=== PATIENT | male | born 1955 | race Caucasian/White ===

== ENCOUNTER 2016-11-28 07:24 | Inpatient (IN) | payer MEDICAID ==
[~2016-11-28] VITALS: Ht 180.3 cm; Wt 99.8 kg
[2016-11-28 08:17] LABS: BASOPHILS 0.3 % (0.0-2.0); EOSINOPHILS 3.5 % (0-7); HEMATOCRIT 46.7 % (42.0-54.0); HEMOGLOBIN 16.4 g/dL (13.5-17.5); IMMATURE GRANULOCYTES 0.3 % (0-5); LYMPHOCYTES 16.5 % (15-50); MCH 36.1 pg (26.0-34.0); MCHC 35.1 g/dL (31.0-37.0); MCV 102.9 fL (80.0-100.0); MEAN PLATELET VOLUME 10.9 fL (7.4-10.4); MONOCYTES 6.6 % (2-11); NEUTROPHILS 72.8 % (40-80); PLATELET COUNT 185 10x3/uL (130-400); RBC 4.54 10x6/uL (4.20-6.10); RDW 13.1 % (11.5-14.5); WBC 11.3 10x3/uL (4.8-10.8)
[2016-11-28 08:33] LABS: ALBUMIN 4.2 g/dL (3.4-5.0); ANION GAP 15.1 mmol/L (8-16); BILIRUBIN - TOTAL 0.5 mg/dL (0.2-1.3); CALCIUM 9.2 mg/dL (8.5-10.1); CARBON DIOXIDE 28.8 mmol/L (21.0-32.0); CREATININE - SERUM 1.4 mg/dL (0.6-1.3); POTASSIUM - SERUM 3.9 mmol/L (3.5-5.1); PROTEIN - SERUM 7.8 g/dL (6.4-8.2)
[2016-11-28 08:38] LABS: MAGNESIUM - SERUM 1.6 mg/dL (1.8-2.4)
[2016-11-28 10:00] LABS: CREATINE KINASE 115 UL (21-232); TROPONIN-I < 0.017 ng/mL (0.000-0.060)
[2016-11-28 10:21] LABS: APPEARANCE HAZY (CLEAR); BILIRUBIN NEGATIVE (NEGATIVE); COLOR YELLOW (YELLOW); GLUCOSE NEGATIVE (NEGATIVE); KETONE NEGATIVE (NEGATIVE); LEUKOCYTE ESTERASE TRACE (NEGATIVE); NITRITE NEGATIVE (NEGATIVE); PROTEIN 1+ mg/dL (NEGATIVE); SPECIFIC GRAVITY 1.015 (1.005-1.020); UROBILINOGEN NORMAL (NORMAL)
[2016-11-28 10:22] LABS: BACTERIA MODERATE /hpf (NONE SEEN); EPITHELIAL CELLS 0-5 /hpf (0-5); MUCUS >1+ /lpf (NONE SEEN); RED CELLS - URINE 0-5 /hpf (0-5); WHITE CELLS - URINE 0-5 /hpf (0-5)
[2016-11-28 10:23] LABS: GRANULAR CAST OCC /lpf (NONE SEEN); HYALINE CAST OCC /lpf (NONE SEEN)
--- NOTE | 2016-11-28 10:42 | NUR ---
PT ARRIVED TO ROOM WITH HOSPITAL STAFF. WILL BEGIN ADMISSION ASSESSMENT AND WORK-UP AT THIS TIME.
[2016-11-28] MEDS ORDERED: NORVASC5 MG PO (10:56)
[2016-11-28] MEDS ORDERED: TENORMIN25 MG PO (10:56)
[2016-11-28 10:57] VITALS: BP 110/53; BMI 30.7
[2016-11-28 11:57] VITALS: BP 140/73
--- NOTE | 2016-11-28 12:14 | NUR ---
INITIATED PTS PUPIL PERSONNEL WORKER PUMP. MORPHINE 1MG Q10MIN WITH 4HR 10MG LOCKOUT IN PLACE. INFUSING VIA L.FA PIV ALONG WITH D5 LR @100ML/HR INFUSING ORDERED. PIV HAS DRSG CDI AND SWAB CAPS IN USE. PT NPO AND C/O DRY MOUTH PROVIDED HIM WITH ORAL MOUTH SWABS. PT DENIES WANTING ANY SCDS ON AND STATES HE WILL BE UP AMBULATORY OFTEN. CL IN REACH, BED IN LOWEST, AT BEDSIDE. NO FURTHER NEEDS AT THIS TIME. WILL CPOC.
[2016-11-28 15:10] VITALS: BP 146/90
--- NOTE | 2016-11-28 19:15 | NUR ---
RESUMED CARE OF PT, IV-LFA-D5 LR-100, STAFF CONSULTANT PUMP, VISITING WITH , DENIES ANY NEEDS, CALL LIGHT IN REACH, BED IS LOW, SRX2, WILL CONTINUE TO MONITOR
[2016-11-28 20:00] VITALS: BP 121/70
--- NOTE | 2016-11-28 23:49 | NUR ---
WOOD POLE TREATER AT BEDSIDE TO OBTAIN VITALS, CALL LIGHT IN REACH. WILL CONTINUE TO MONITOR.
[2016-11-29] VITALS: BP 133/58
--- NOTE | 2016-11-29 02:21 | NUR ---
SLEEPING, BED IS LOW, SRX2, CALL LIGHT IN REACH
[2016-11-29 04:00] VITALS: BP 133/62
--- NOTE | 2016-11-29 07:23 | NUR ---
AM ROUNDING- PT SITTING UP IN BED WITH HOB ELEVATED 30 DEGREES. PT IS ALERT AND ORIENTED. ON ROOM AIR. NO MONITOR. PT IS NPO D/T PANCREATITIS. IV SEEN TO LEFT FOREARM WITH D5, LR RUNNING AT 100CC. PACKAGE CRIMPER PUMP WITH MORPHINE AT 1MG [id number] WITH A 10MG Q4H LOCKOUT, AND PT CAN HAVE BOLUS Q2H AT 2MG. PT IS UP AD HELEN. PT DENIES ANY NEED AT CURRENT TIME. WILL CONTINUE TO MONITOR.
[2016-11-29 08:00] VITALS: BP 158/78
--- NOTE | 2016-11-29 08:11 | NUR ---
PT IN WHEELCHAIR WITH IN HALLWAY WITH IV PUMP WANTING TO GO OUTSIDE AND SMOKE. INFORMED PT THAT I DO NOT THINK IT IS A GOOD IDEA TO GO OUTSIDE TO SMOKE SINCE PT IS ON MORPHINE OPERATIONS AND MAINTENANCE TECHNICAN. PT STATED HE IS GOING OUTSIDE TO SMOKE AND IT "HAS NOT BEEN A PROBLEM THE PAST THREE SHIFTS". DISCONNECTED PT FROM IV PUMP WITH OPERATIONS AND MAINTENANCE TECHNICAN. PT OUT TO SMOKE VIA WHEELCHAIR WITH . WILL CONTINUE TO MONITOR.
[2016-11-29 09:34] LABS: BASOPHILS 0.3 % (0.0-2.0); HEMOGLOBIN 14.1 g/dL (13.5-17.5); IMMATURE GRANULOCYTES 0.3 % (0-5); LYMPHOCYTES 13.4 % (15-50); MCH 35.5 pg (26.0-34.0); MCHC 34.4 g/dL (31.0-37.0); MCV 103.3 fL (80.0-100.0); MEAN PLATELET VOLUME 10.6 fL (7.4-10.4); RBC 3.97 10x6/uL (4.20-6.10); RDW 13.2 % (11.5-14.5); WBC 8.8 10x3/uL (4.8-10.8)
--- NOTE | 2016-11-29 09:58 | NUR ---
ON MONITOR SHOWING SR, HR 88.
[2016-11-29 10:03] LABS: ALBUMIN 3.4 g/dL (3.4-5.0); ANION GAP 12.7 mmol/L (8-16); BILIRUBIN - TOTAL 1.1 mg/dL (0.2-1.3); CALCIUM 8.9 mg/dL (8.5-10.1); CREATININE - SERUM 1.5 mg/dL (0.6-1.3); POTASSIUM - SERUM 3.7 mmol/L (3.5-5.1); PROTEIN - SERUM 7.2 g/dL (6.4-8.2)
[2016-11-29 10:05] LABS: CHOL - HDL RATIO 5.1 ratio (2.3-4.9); LDL-HDL RATIO 3.2 ratio (1.5-3.5)
[2016-11-29 10:09] LABS: PLATELET COUNT 107 10x3/uL (130-400)
--- NOTE | 2016-11-29 11:19 | NUR ---
1110- PT OUT OF ROOM VIA WHEELCHAIR TO SMOKE. INFORMED PT THAT I DO NOT ADVISE THAT BECAUSE BEING ON A FERRYBOAT CAPTAIN PUMP WITH MORPHINE. PT STATED HE IS GOING OUT TO SMOKE. I DISCONNECTED PT FROM IV AND FERRYBOAT CAPTAIN PUMP. IS TAKING PT OUT TO SMOKE VIA WHEELCHAIR. WILL CONTINUE TO MONITOR.
[2016-11-29 12:00] VITALS: BP 143/65
[2016-11-29 12:14] VITALS: Ht 180.3 cm; Wt 99.8 kg
--- NOTE | 2016-11-29 12:51 | NUR ---
Patient Name: MICHELLE ECHOLS Admission Status: ER Accout number: [id number] Admission Date: 11-28-2016 : 1955 Admission Diagnosis: Attending: ELISSA Current LOS: 1 Anticipated DC Date: Planned Disposition: Home Primary [place]: [place] PR[employer]IONS C[place] Discharge Planning Comments: * Is the patient Alert and Oriented? Yes 0 * How many steps to enter\exit or inside your home? 3 0 * PCP DR. KUMARI 0 * Pharmacy [facility] 0 * Preadmission Environment Home with Family 0 * ADLs Independent 0 * Equipment None 0 * Other Equipment NO MEDICAL EQUIPMENT PROVIDER PREFERENCE 0 * List name and contact numbers for known caregivers / representatives who currently or will assist patient after discharge: ANTHONY ECHOLS, SPOUSE, 0 * Community resources currently utilized None 0 * Please name any agencies selected above. NONE 0 * Additional services required to return to the preadmission environment? No 0 * Can the patient safely return to the preadmission environment? Yes 0 CM MET WITH PT IN ROOM TO DISCUSS DISCHARGE PLANNING AND NEEDS. PT REPORTS LIVING AT HOME INDEPENDENTLY WITH SOUSE. PT HAS NO MEDICAL EQUIPMENT AND NO OUTSIDE SERVICES ASSISTING IN THE HOME. CM DISCUSSED AVAILABILITY OF HOME HEALTH, REHAB SERVICES AND MEDICAL EQUIPMENT. PT DENIES DISCHARGE NEEDS, REPORTS HIS SPOUSE WILL PICK HIM UP FOR DISCHARGE HOME. PT PLANS TO DISCHARGE HOME WITH SPOUSE, DENIES DISCHARGE NEEDS. CM TO FOLLOW AND ASSIST NEEDED. Box Inspector: Adán Light
--- NOTE | 2016-11-29 13:48 | NUR ---
1030- SCDS PLACED ON PT AND EXPLAINED TO PT WHAT SCDS ARE USED FOR.
--- NOTE | 2016-11-29 14:05 | NUR ---
PT OFF UNIT AGAIN VIA WHEELCHAIR TO SMOKE. DISCONNECTED PT FROM IV AND QUALITY CONTROL DIRECTOR PUMP. IS TAKING PT DOWN VIA WHEELCHAIR. INFORMED PT THAT I DO NOT THINK IT IS A GOOD IDEA TO GO OFF UNIT TO SMOKE. PT OFF UNIT VIA WHEELCHAIR ACCOMPANIED BY . WILL CONTINUE TO MONITOR.
--- NOTE | 2016-11-29 14:39 | NUR ---
D/C'D PTS PACKAGE REINSPECTOR PUMP WITH MORPHINE ORDERED. PT STATED HE IS NOT HAPPY ABOUT PACKAGE REINSPECTOR BEING D/C. I INFORMED PT THAT DOCTOR IS STILL PUTTING ORDERS IN. PT STATED HE WOULD CHECK HIMSELF OUT OF HOSPITAL AND GO TO [facility] IF HE DOES NOT GET PAIN MEDICAION. NEW ORDERS ARE BEING RECEIVED, WILL INFORM PT AND CONTINUE TO MONITOR.
[2016-11-29 16:00] VITALS: BP 149/83
--- NOTE | 2016-11-29 17:57 | NUR ---
PT SITTING UP IN BED WATCHING TV ASKING WHEN HE CAN HAVE HIS NEXT DOSE OF PAIN MEDICATION. INFORMED PT THAT I WOULD CHECK AND GET BACK TO HIM. WILL CONTINUE TO MONITOR.
--- NOTE | 2016-11-29 19:00 | NUR ---
RESTING QUIETLY NAD NOTED
--- NOTE | 2016-11-29 19:10 | NUR ---
RESUMED CARE, PT ON ROOM AIR, IV-LFA-MVI @ 125, PT IS ALERT&ORINTATED, UP AB HELEN, AT BEDSIDE, DENIES ANY NEEDS, CALL LIGHT IN REACH, BED IS LOW, SRX2
[2016-11-29 22:18] VITALS: BP 144/69
--- NOTE | 2016-11-30 03:45 | NUR ---
PT SLEEPING, GAVE MINNIE BACK, AT BED SIDE, WILL CONTINUE TO MONITOR
[2016-11-30 05:15] LABS: BASOPHILS 0.4 % (0.0-2.0); EOSINOPHILS 3.7 % (0-7); HEMATOCRIT 40.2 % (42.0-54.0); HEMOGLOBIN 13.6 g/dL (13.5-17.5); IMMATURE GRANULOCYTES 0.1 % (0-5); MCH 34.9 pg (26.0-34.0); MCHC 33.8 g/dL (31.0-37.0); MCV 103.1 fL (80.0-100.0); MEAN PLATELET VOLUME 10.7 fL (7.4-10.4); MONOCYTES 7.5 % (2-11); NEUTROPHILS 68.3 % (40-80); PLATELET COUNT 105 10x3/uL (130-400); RDW 13.2 % (11.5-14.5); WBC 7.9 10x3/uL (4.8-10.8)
[2016-11-30 05:29] LABS: ALBUMIN 3.2 g/dL (3.4-5.0); ANION GAP 16.5 mmol/L (8-16); CALCIUM 8.4 mg/dL (8.5-10.1); CREATININE - SERUM 1.2 mg/dL (0.6-1.3); POTASSIUM - SERUM 3.5 mmol/L (3.5-5.1); PROTEIN - SERUM 6.4 g/dL (6.4-8.2)
[2016-11-30 05:48] VITALS: BP 138/78
[2016-11-30 07:45] VITALS: BP 127/82
[2016-11-30 12:20] VITALS: BP 138/69
[2016-11-30 15:43] VITALS: BP 129/63
--- NOTE | 2016-11-30 19:18 | NUR ---
RESUMED CARE OF PT, IV-LFA-SL, CLEAR LIQUID DIET,[id number], DENIES ANY NEEDS, BED IS LOW, CALL LIGHT IN REACH, WILL CONTINUE TO MONITOR
[2016-11-30 20:20] VITALS: BP 160/72
[2016-12-01 05:30] LABS: ANION GAP 13.2 mmol/L (8-16); BILIRUBIN - TOTAL 0.6 mg/dL (0.2-1.3); CALCIUM 8.5 mg/dL (8.5-10.1); CARBON DIOXIDE 25.9 mmol/L (21.0-32.0); CREATININE - SERUM 1.2 mg/dL (0.6-1.3); POTASSIUM - SERUM 3.1 mmol/L (3.5-5.1); PROTEIN - SERUM 7.1 g/dL (6.4-8.2)
[2016-12-01 05:33] LABS: BASOPHILS 0.5 % (0.0-2.0); EOSINOPHILS 6.5 % (0-7); HEMATOCRIT 37.6 % (42.0-54.0); HEMOGLOBIN 13.1 g/dL (13.5-17.5); IMMATURE GRANULOCYTES 0.2 % (0-5); LYMPHOCYTES 26.2 % (15-50); MCH 35.5 pg (26.0-34.0); MCHC 34.8 g/dL (31.0-37.0); MCV 101.9 fL (80.0-100.0); MEAN PLATELET VOLUME 10.8 fL (7.4-10.4); MONOCYTES 9.1 % (2-11); NEUTROPHILS 57.5 % (40-80); PLATELET COUNT 110 10x3/uL (130-400); RBC 3.69 10x6/uL (4.20-6.10); RDW 13.1 % (11.5-14.5)
[2016-12-01 05:47] LABS: WBC 5.7 10x3/uL (4.8-10.8)
--- NOTE | 2016-12-01 07:23 | NUR ---
AM ROUNDING- PT UP WALKING AROUND ROOM. IS IN CHAIR AT BEDSIDE. IV SEEN TO LEFT FOREARM THAT IS CURRENTLY SALINE LOCKED AND PATENT. ON ROOM AIR. ON MONITOR SHOWING SR, HR 82. PTS POTASSIUM WAS 3.1 THIS AM. TICKET DISPENSER CHANGER NURSE MATT, COVERED HIM PER PROTOCOL. PT IS POSSIBLY GOING HOME TODAY. WILL CONTINUE TO MONITOR.
[2016-12-01 07:50] VITALS: BP 136/78
[2016-12-01 11:59] VITALS: BP 143/72
--- NOTE | 2016-12-01 12:49 | NUR ---
Nutrition education for pancreatitis: Provided pt with printed low-fat diet information. Questions answered.
--- NOTE | 2016-12-01 14:56 | NUR ---
D/C PTS L.FA PIV WITH CATHETER TIP FULLY INTACT. DISCHARGE INSTRUCTIONS GIVEN AND PT VERBALIZED UNDERSTANDING. FLU VACCINE GIVEN ORDERED. PT READY TO LEAVE TRANSPORTATION. NO FURTHER NEEDS.
== END 2016-12-01 15:03 | disposition home or self-care (01) | DRG 439 ==
LOC: D.ER 07:24 → D.M2 09:55
PROVIDERS: Emergency Medicine; ADMIT Family Medicine
DX: K85.90 Acute pancreatitis without necrosis or infection, unspecified (principal); F17.203 Nicotine dependence unspecified, with withdrawal; I10 Essential (primary) hypertension; E78.5 Hyperlipidemia, unspecified; Z23 Encounter for immunization

== ENCOUNTER → 2017-07-18 14:12 | Outpatient (CLI) | payer MEDICAID ==
[2016-11-29 12:14] VITALS: BMI 30.6
[~2017-07-18 14:12] MED LIST: NORVASC5 MG PO; TENORMIN25 MG PO
== END | disposition home or self-care (01) ==
LOC: D.CT 14:12
DX: R07.9 Chest pain, unspecified (principal)

== ENCOUNTER → 2018-01-17 10:47 | Outpatient (CLI) | payer MEDICAID ==
[2016-11-29 12:14] VITALS: BMI 30.6
[~2018-01-17 10:47] MED LIST changes: +ASPIRIN EC81 M1 PO; +DHEA25 M1 PO; +FENOGLIDE40 MG; +FLOMAX0.4 MG PO; +FOLATE0.4 MG PO; +HYDROCODON-ACE1 EAC7 PO; +LIPITOR20 MG PO; +NIASPAN500 MG PO; +NORVASC10 MG PO; -NORVASC5 MG PO; +OMEGA 3 FISH OI1 CAP; +OMEPRAZOLE20 M1 PO; +PLAVIX75 MG PO; +POTASSIUM99 M1 PO; +PROBENECID500 MG PO; +SAW PALMETTO450 MG PO; +VITAMIN C1000 MG PO
== END | disposition home or self-care (01) ==
LOC: D.US 01-13 10:30
DX: R10.9 Unspecified abdominal pain (principal)

== ENCOUNTER → 2018-01-25 12:25 | Outpatient (CLI) | payer MEDICAID ==
[2016-11-29 12:14] VITALS: BMI 30.6
== END | disposition home or self-care (01) ==
LOC: D.CT 12:25
DX: I65.23 Occlusion and stenosis of bilateral carotid arteries (principal)

== ENCOUNTER 2018-02-03 05:00 | Inpatient (IN) | payer MEDICAID ==
[2018-02-02 11:21] LABS: APPEARANCE HAZY (CLEAR); BILIRUBIN NEGATIVE (NEGATIVE); COLOR YELLOW (YELLOW); GLUCOSE NEGATIVE (NEGATIVE); KETONE NEGATIVE (NEGATIVE); NITRITE NEGATIVE (NEGATIVE); PROTEIN NEGATIVE (NEGATIVE); UROBILINOGEN NORMAL (NORMAL)
[2018-02-02 11:25] LABS: HEMATOCRIT 44.7 % (42.0-54.0); HEMOGLOBIN 15.4 g/dL (13.5-17.5); MCH 34.4 pg (26.0-34.0); MCHC 34.5 g/dL (31.0-37.0); MCV 99.8 fL (80.0-100.0); RBC 4.48 10x6/uL (4.20-6.10); RDW 12.9 % (11.5-14.5); WBC 7.5 10x3/uL (4.8-10.8)
[2018-02-02 11:30] LABS: INR 1.04 (0.85-1.17)
[2018-02-02 11:35] LABS: ALBUMIN 4.2 g/dL (3.4-5.0); ANION GAP 11.7 mmol/L (8-16); BILIRUBIN - TOTAL 0.52 mg/dL (0.2-1.3); CALCIUM 9.2 mg/dL (8.5-10.1); CARBON DIOXIDE 32.1 mmol/L (21.0-32.0); CREATININE - SERUM 1.4 mg/dL (0.6-1.3); POTASSIUM - SERUM 4.8 mmol/L (3.5-5.1); PROTEIN - SERUM 8.2 g/dL (6.4-8.2)
[2018-02-02 11:38] LABS: APTT 27.6 SECONDS (22.8-39.4)
[~2018-02-03] VITALS: Ht 180.3 cm; Wt 90.9 kg
[2018-02-03] VITALS (59 sets, daily range): BP systolic 130–146; BP diastolic 52–68; BMI 28.9
--- NOTE | ~2018-02-03 | OP ---
PATIENT NAME: MICHELLE ECHOLS MEDICAL RECORD: [id number] :59 LOCATION:D.CVI D.CV08 ADMISSION DATE:02/03/18 SURGEON: JERMAINE ALVARENGA MD DATE OF OPERATION: 02/03/2018 SURGEON: Jermaine Alvarenga MD REPAIRER PUMP: Perry Watson MD ANESTHESIA: General endotracheal. ANESTHESIOLOGIST: Ion Becker MD OPERATION PERFORMED: Left carotid endarterectomy with patch angioplasty. PREOPERATIVE DIAGNOSIS: Critical left internal carotid artery stenosis. POSTOPERATIVE DIAGNOSIS: Critical left internal carotid artery stenosis. INDICATION FOR OPERATION: Critical left internal carotid artery stenosis, symptomatic. FINDINGS AT OPERATION: Severe greater than 90% left internal carotid artery stenosis. ESTIMATED BLOOD LOSS: Less than 50 cc. FINDINGS: There were no EEG changes with clamping or unclamping of the carotid artery. DESCRIPTION OF PROCEDURE: After informed consent, adequate preoperative medication evaluation, the patient was brought to the operating room, placed on the table in the supine position. After induction of general endotracheal anesthesia and application of appropriate monitoring devices, the left neck and chest were prepped and draped in sterile field, utilizing Betadine scrub, alcohol, and Betadine solution. Betadine-impregnated drape was also used. An oblique incision was made in the skin crease. Dissection carried down to the fascia. Hemostasis maintained with electrocautery. Facial vein was identified and divided. Utilizing sharp dissection, the common carotid, internal and external carotid arteries were dissected free from surrounding structures, protecting the neurological structures. The patient was given a calculated dose of heparin, after 3 minutes clamps were applied. After 2 minutes of no EEG change, the arteriotomy was made and extended with Hood scissors. Artery underwent endarterectomy sharply. Artery underwent extensive debridement and irrigation. Utilizing a vascular patch, CorMatrix and running 7-0 Prolene suture, the arteriotomy was closed with a patch angioplasty technique. All maneuvers to remove trapped air were performed. The clamps were removed sequentially. There were no EEG changes. The patient was given a calculated dose of protamine to reverse the heparin. Hemostasis was assured. A #7 Sanya-Martinez drain was left in the depths of wound and brought through the base of the neck. Neck was again irrigated. Instrument count and sponge count were correct times 2. Neck was closed in layers utilizing 3-0 Vicryl on the platysma, 5-0 subcuticular Monocryl on skin. Sterile dressings were applied. The patient tolerated the procedure well and was transferred to the CV-ICU in satisfactory condition. OPERATIVE REPORT [id number] MICHELLE ECHOLS TRANSINT:[id number] Voice Confirmation ID: [id number] DOCUMENT ID: [id number] JERMAINE ALVARENGA MD at 1743 CC: [id number] DICTATION DATE: 02/03/18 1034 INFORMATION RESOURCES MANAGER: 02/03/18 1115 ADM IN [place] [id number] [place] [address]
--- NOTE | ~2018-02-03 | HP ---
PATIENT: MICHELLE ECHOLS MEDICAL RECORD: [id number] ACCOUNT: [id number] [facility] AD[facility]ION DATE: 02/03/18 HISTORY AND PHYSICAL EXAMINATION NameMICHELLE ECHOLS (62yo, M) ID# [id number]. Date/Time01/30/2018 11:[id number] 1955Service Dept.[facility] ClinicProviderEDJOSE ALVARENGA MDInsuranceMed Primary: [place] Insurance # : [id number] Policy/Group # : [id number] Employer Name : SELF EMPLOYED Prescription: CMX - Member is eligible. Prescription: [facility] MEDICAID ADMINISTRATION - Member is eligible. Chief Complaint Carotid stenosis new pt visit for carotid stenosis Patient's Pharmacies [facility] (ERX): [address] , [facility] [id number], , Vitals BP:122/60 sitting L arm 01/30/2018 11:42 am 116/62 sitting R arm 01/30/2018 11:43 amBP Cuff Size:adult 01/30/2018 11:42 am adult 01/30/2018 11:43 amHR:52,reg 01/30/2018 11:44 amHt:5 ft 11 in 01/30/2018 11:44 amWt:210 lbs 01/30/2018 11:44 amNotes:dizziness, light-headed, nausea 01/30/2018 11:44 amBMI:29.3 01/30/2018 11:44 amAllergies Reviewed Allergies POLLEN EXTRACTSNKDASome allergies listed in Document: #[id number] could not be added to this patient's chart. Please review this document and add these allergies to the patient's chart manually as needed.Medications Reviewed Medications amLODIPine 10 mg tablet Take 1 tablet(s) every day by oral route.01/27/18 enteredErika Watkinsatenolol 25 mg tablet Take 1 tablet(s) every day by oral route.01/27/18 enteredErika Watkinsatorvastatin 10 mg tablet Take 1 tablet(s) every day by oral route.01/27/18 enteredErika Watkinscefdinir 300 mg fltsacg93/21/18 filledCaremarkdoxycycline hyclate 100 mg dryyxb25/12/18 filledCaremarkniacin (inositol niacinate) 500 mg tablet Take every day by oral route.01/27/18 enteredCarolina Basilioomeprazole 20 mg capsule,delayed release Take 1 capsule(s) every day by oral route.01/27/18 enteredCarloina Basiliooseltamivir 75 mg rmlmtty39/11/18 filledCaremarkPlavix 75 mg tablet Take 1 tablet(s) every day by oral route.01/30/18 Gisele Alvarenga, MDprobenecid 500 mg tablet Take 0.5 tablet(s) twice a day by oral route.01/27/18 enteredCarolina Basiliotamsulosin 0.4 mg capsule Take 1 capsule(s) every day by oral route.01/27/18 enteredErijuani BasilioViagra 100 mg tablet Take 1 tablet(s) as needed by oral route.01/27/18 enteredCarolina BasilioVirtussin AC 10 mg-100 mg/5 mL oral niecif69/12/18 filledCaremark Some medications listed in Document: #[id number] could not be added to this patient's chart. Please review this document and add these medications to the patient's chart manually as needed. Problems Reviewed Problems HISTORY AND PHYSICAL [id number] MICHELLE ECHOLS Right carotid artery stenosis - Onset: 01/30/2018 Floaters in visual field - Onset: 01/30/2018 Left carotid artery stenosis - Onset: 01/30/2018 Dizzy spells - Onset: 01/30/2018 Carotid bruit - Onset: 01/30/2018 Family History Reviewed Family History Father- Cerebrovascular accident - Diabetes mellitusSocial History Reviewed Social History Cardiology, General, and Medical Wellness Visit/IPPE Smoking Status: Current every day smoker Smoker (1 PPD) Has smoked since age: 15 High Cholesterol: N High blood pressure: Y Exercise level: Moderate Diabetes: N Alcohol intake: Occasional Diet: Regular Occupation: [employer] Marital status: Caffeine intake: Moderate Chewing tobacco: none Tobacco-years of use: 47 started smoking at age 15 Surgical History Reviewed Surgical History Appendectomy - 10/24/1969 Cardiac Cath 2009 Past Medical History Reviewed Past Medical History Chest Pain: Y Eye Problems: Y Headache: Y Heartburn: Y High Blood Pressure: Y Joint Pain or Swelling: Y Documents for Discussion N/A Screening None recorded. HPI Cerebral Vascular Disease Reported by patient. Quality: shade over vision; dizziness; blurred vision Onset/Timing: continuous Context: at rest; while driving Alleviating Factors: rest Aggravating Factors: head turning Associated Symptoms: headache; nausea; tinnitus; difficulty speaking; palpitations severe left internal carotid artery stenosis HISTORY AND PHYSICAL [id number] MICHELLE ECHOLS ROS Patient reports exercise intolerance (due to imbalance) but reports no fever, no night sweats, no significant weight gain, and no significant weight loss. He reports no jugular vein distension and no swollen glands; left carotid bruit.high pitch. He reports arthralgias/joint pain but reports no muscle aches, no muscle weakness, no back pain, and no swelling in the extremities. He reports no loss of consciousness, no weakness, no numbness, no seizures, no dizziness, and no headaches; imbalance and dizziness Visual disturbances 2. He reports no dry eyes, no irri tation, and no vision change. He reports no difficulty hearing and no ear pain. He reports no frequent nosebleeds and no nose/sinus problems. He reports no sore throat, no bleeding gums, no snoring, no dry mouth, no mouth ulcers, no oral abnormalities, an d no teeth problems. He reports no chest pain, no arm pain on exertion, no shortness of breath when walking, no shortness of breath when lying down, no palpitations, and no known heart murmur. He reports no cough, no wheezing, no shortness of breath, and n o coughing up blood. He reports no abdominal pain, no vomiting, normal appetite, no diarrhea, not vomiting blood, no nausea, and no constipation. He reports no incontinence, no difficulty urinating, no hematuria, and no increased frequency. He reports no a b normal mole, no jaundice, and no rashes. He reports no depression, no sleep disturbances, feeling safe in relationship, and no alcohol abuse. He reports no fatigue. He reports no swollen glands and no bruising. He reports no runny nose, no sinus pressure, no itching, no hives, and no frequent sneezing. ROS as noted in the HPI Physical Exam Patient is a 62-year-old male. Constitutional: General Appearance well nourished and developed and healthy-appearing. Level of Distress NAD. Ambulation ambulating normally. Cardiovascular: Apical Impulse not displaced or no thrill. Heart Auscultation normal s1 and s2; no murmurs, rubs, or gallops; and RRR. Arterial Pulses no abdominal aorta bruits, femoral bruits, or popliteal bruits and 2+ bilateral, carotid 2+ bilater al, femoral 2+ bilateral, popliteal 2+ bilateral, and dorsalis pedis 2+ bilateral. Edema no edema or varicosities. Lungs: Repiratory Effort no dyspnea. Percussion no hyperresonance or dullness or flatness. Auscultation no wheezing, rhonchi, or rales / cranberry sorter ckles and breathing sounds normal, good air movement, and CTA except as noted. Abdomen: Bowl Sounds normal. Inspection and Palpation no tenderness, guarding, masses, or rebound tenderness and soft and non-distended. Liver non-tender and no hepatomegaly. Spleen non-tender and no splenomegaly. Hernia none palpable. Musculoskeletal System: Gait And Stance normal gait and stance. Digits and Nails normal nails and no cyanosis. Neurologic: Cranial Nerves grossly intact. Reflexes DTRs 2+ bilaterally throughout. Sensation grossly intact. Lymph Nodes: Lymph Nodes no cervical LAD, supraclavicular LAD, axillary LAD, or inguinal LAD. Eyes: Lids and Conjunctivae no discharge or pallor and non-injected. Pupils PERRLA. Cornea grossly intact. EOM EOMI. Lens clear. Sclerae non-icteric. HISTORY AND PHYSICAL [id number] MICHELLE ECHOLS Neck: Neck no masses or enlarged lymph nodes and supple, trachea midline, and carotid bruits (lleft). Thyroid no enlargement or nodules and non-tender. Skin: Inspection and Palpation no rash, lesions, ulcers, jaundice, or abnormal nevi. Assessment / Plan severe left internal carotid artery stenosis 1. Left carotid artery stenosis I65.22: Occlusion and stenosis of left carotid artery 2. Right carotid artery stenosis I65.21: Occlusion and stenosis of right carotid artery Discussion Notes ssevere left internal carotid artery stenosis. I have discussed the patient's disease process with him and his in detail as well as the alternative methods of treatment. We discussed left carotid endarterectomy including the expected benefits and ris ks which include bleeding, infection, stroke, , and the imponderables. He understands all of the above and wishes to proceed with planned left carotid endarterectomy. He is to start Plavix 150 mg today and 75 mg daily Schedule left carotid endarterectomy in 4 days NII ALVARENGA MD at 1743 CC: [id number] DICTATION DATE: 01/30/18 1100 ALUMINIZER: YADI 01/31/18 0956 ADM IN [place] [id number] [place] [id number]
[~2018-02-03 05:00] MED LIST changes: -FENOGLIDE40 MG; -FOLATE0.4 MG PO; -HYDROCODON-ACE1 EAC7 PO; -OMEGA 3 FISH OI1 CAP; -POTASSIUM99 M1 PO
[2018-02-03] MEDS ORDERED: POTASSIUM99 M1 PO (05:22)
[2018-02-03] MEDS ORDERED: FOLATE0.4 MG PO (05:23)
[2018-02-03] MEDS ORDERED: OMEGA 3 FISH OI1 CAP (05:23)
[2018-02-03] MEDS ORDERED: FENOGLIDE40 MG (05:23)
[2018-02-04] VITALS (53 sets, daily range): BP systolic 123–149; BP diastolic 52–99; Ht 180.3 cm; Wt 90.9 kg
[2018-02-04] MEDS ORDERED: HYDROCODON-ACE1 EAC7 PO (11:16)
== END 2018-02-04 16:28 | disposition home or self-care (01) | DRG 39 ==
LOC: D.SDCHOLD 05:00 → D.CVICU 05:00 → D.SDCHOLD 07:30 → D.CVICU 10:05
PROVIDERS: Internal Medicine Cardiovascular Disease
PROC: 03UL0JZ Supplement Left Internal Carotid Artery with Synthetic Substitute, Open Approach (ICD-10-PCS; 2018-02-03)
PROC: 03CL0ZZ Extirpation of Matter from Left Internal Carotid Artery, Open Approach (ICD-10-PCS; principal; 2018-02-03 07:30)
DX: I65.23 Occlusion and stenosis of bilateral carotid arteries (principal); I10 Essential (primary) hypertension; E78.5 Hyperlipidemia, unspecified

== ENCOUNTER → 2018-04-25 11:12 | Outpatient (CLI) | payer MEDICAID ==
[2018-02-04 08:17] VITALS: BMI 27.9
[~2018-04-25 11:12] MED LIST changes: +FENOGLIDE40 MG; +FOLATE0.4 MG PO; +HYDROCODON-ACE1 EAC7 PO; +OMEGA 3 FISH OI1 CAP; +POTASSIUM99 M1 PO
== END | disposition home or self-care (01) ==
LOC: D.CT 11:12
DX: S09.90XA Unspecified injury of head, initial encounter (principal); X58.XXXA Exposure to other specified factors, initial encounter

== ENCOUNTER → 2018-08-08 14:45 | Outpatient (CLI) | payer MEDICAID ==
[2018-02-04 08:17] VITALS: BMI 27.9
== END | disposition home or self-care (01) ==
LOC: D.US 14:45
DX: I65.23 Occlusion and stenosis of bilateral carotid arteries (principal)

== ENCOUNTER → 2018-09-15 12:29 | Outpatient (CLI) | payer MEDICAID ==
[2018-02-04 08:17] VITALS: BMI 27.9
== END | disposition home or self-care (01) ==
LOC: D.NM 08:30
DX: K80.20 Calculus of gallbladder without cholecystitis without obstruction (principal)

== ENCOUNTER 2019-01-19 21:18 | Observation (INO) | payer MEDICAID ==
[~2019-01-19] VITALS: Ht 180.3 cm; Wt 102.3 kg
--- NOTE | ~2019-01-19 | HEMODYNAMI ---
PATIENT:MICHELLE ECHOLS MEDICAL RECORD: [id number] : 59 [id number] ADMISSION DATE: 01/19/19 Generatedon:01/20/201912:36 Patient name: MICHELLE ECHOLS Patient #: [id number] SSN: : 1955 Date of study: 01/20/2019 Page: Of Hemodynamic Procedure Report Patient Data Patient Demographics Procedure consent was obtained First Name: MICHELLE Gender: Male Last Name: ONESIMO : 1955 Middle Initial: JUDITH Age: 63 year(s) Patient #: [id number] Race: Unknown Additional ID: [id number] Contact details Address: [address] [place] [address] State: [place] City: [place] Zip code: [address] Admission Admission Data Admission Date: 01/19/2019 Admission Time: 22:55 Room #: D.2136 Height (in.): 70.87 BSA: 2.21 (m2) Height (cm.): 180 BMI: 31.48 (kg/m2) Weight (lbs.): 224.87 Weight (kg.): 102 Lab Results Lab Result Date: 01/20/2019 Lab Result Time: 0:00 Biochemistry Name Units Result Min Max BUN mg/dl 11 --(-*--)-- 7 18 Creatinine mg/dl 1.1 --(--*-)-- 0.6 1.3 CBC Name Units Result Min Max Hemoglobin g/dl 14.6 --(-*--)-- 13.5 17.5 Procedure Procedure Types Cath Procedure Diagnostic Procedure [facility] w/Coronaries Procedure Description Procedure Date Procedure Date: 01/20/2019 Procedure Start Time: 12:28 Procedure End Time: 12:33 Procedure Staff Name Function Lopez Crawford MD Performing Physician Criss Wray RT Monitor Zulma Luz RN Nurse Maribeth Dillon RT Scrub Procedure Data Cath Procedure Fluoroscopy Diagnostic fluoroscopy Total fluoroscopy Time: 0.7 time: 0.7 min min Diagnostic fluoroscopy Total fluoroscopy dose: 382 dose: 382 mGy mGy Contrast Material Contrast Material Type Amount (ml) Isovue 300 27 Entry Location Entry Primary Successful Side Size Upsize Upsize Entry Closure De Jesus ccessful Closure Location (Fr) 1 (Fr) 2 (Fr) Remarks Device Remarks Radial Right 6 Fr Mechanical artery Short Compression Estimated blood loss: 5 ml Diagnostic catheters Device Type Used For End Catheter Placement DIAGNOSTIC Kirkwood 110cm 5 Multi-vessel Fr catheter ([id number]) Angiography Procedure Complications No complications Procedure Medications Medication Administration Route Dosage 0.9% NaCl I.V. 100 ml/hr Oxygen etCO2 Nasal cannula 2 l/min Lidocaine 2% added to field 20 Heparin Flush Bag added to field 2 bags (1000units/500ml NS) Radial Cocktail added to field 1 syringe (Verapomil 2mg/Nitro 400mcg/Heparin 1500units) Versed I.V. 2 mg Fentanyl I.V. 50 mcg Versed I.V. 2 mg Fentanyl I.V. 50 mcg Hemodynamics Rest BSA: 2.21 (m2) HGB: 14.6 (g/dl) O2 Consumption: Estimated: 250.52 (ml/min) O2 Co nsumption indexed: Estimated:113.36 (ml/min/m) Heart Rate: 60 (bpm) Pressure Samples Time Site Value (mmHg) Purpose Heart Use Rate(bpm) 12:29 LV 23/25,21 Snapshot 96 Snapshots Pre Cath Intra NCS Post Cath Vital Signs Time Heart Resp SPO2 etCO2 NIBP (mmHg) Rhythm Pain Sedation Rate (ipm) (%) (mmHg) Status Level (bpm) 12:18:37 59 13 98 40.4 161/84(134) NSR 0 (11) 10(A) , No pain 12:23:01 57 11 98 40 146/77(119) NSR 0 (11) 10(A) , No pain 12:27:17 70 10 97 26.1 138/79(126) NSR 0 (11) 10(A) , No pain 12:31:33 76 11 99 8.2 125/73(103) NSR 0 (11) 10(A) , No pain Medications Time Medication Route Dose Verified Delivered Reason Notes E ffectiveness by by 12:25:11 0.9% NaCl I.V. 100 Lopez Zulma used for ml/hr Ty Luz curing press operator 12:25:18 Oxygen etCO2 2 l/min Lopez Zulma used for Nasal Ty Luz procedure cannula RN 12:25:22 Lidocaine 2% added 20ml Lopez Marroquin for local to vial Ty Crawford MD anesthetic field 12:25:27 Heparin Flush added 2 bags Lopez Lopez used for Bag to Ty Crawford MD procedure (1000units/500ml field NS) 12:25:40 Radial Cocktail added 1 Lopez Lopez used for (Verapomil to syringe Ty Crawford MD procedure 2mg/Nitro field 400mcg/Heparin 1500units) 12:28:17 Versed I.V. 2 mg Lopez Zulma for yT Luz sedation RN 12:28:22 Fentanyl I.V. 50 mcg Lopez Zulma for Ty Luz sedation RN 12:31:20 Versed I.V. 2 mg Lopez Zulma for Ty Luz sedation RN 12:31:29 Fentanyl I.V. 50 mcg Lopez Zulma for Ty Luz sedation economic geographer Log Time Note 12:05:00 Patient Height : 70.87 inches 12:05:06 Patient Weight : 224.87 lbs 12:06:05 Lab Result : Hemoglobin 14.6 g/dl 12:06:05 Lab Result : Creatinine 1.1 mg/dl 12:06:05 Lab Result : BUN 11 mg/dl 12:06:31 Zulma Luz RN sent for patient. Start room use. 12:06:34 Time tracking: Call back (After hours or weekends) 12:06:40 Plan of Care:Hemodynamics will remain stable., Cardiac rhythm will remain stable., Comfort level will be maintained., Respiratory function will remain adequate., Patient/ family verbilizes understanding of procedure., Procedure tolerated without complication., Recovers from procedure without complications.. 12:06:46 Patient received from Med II to CCL 1 Alert and oriented. Tansferred to table in Supine position. 12:06:53 Warm blankets applied, and nataliia hugger turned on for patient comfort. 12:06:54 Correct patient and procedure confirmed by team. 12:06:56 Signed procedure consent form obtained from patient. 12:17:17 Vital chart was started 12:18:56 ECG and BP/O2 sat monitors applied to patient. 12:18:57 Baseline sample Acquired. 12:19:03 Rhythm: sinus rhythm 12:19:04 Full Disclosure recording started 12:19:08 H&P Date Dictated: 01/20/2019 New H&P dictated by physician.. 12:19:10 Pre-procedure instructions explained to patient. 12:19:10 Pre-op teaching completed and patient verbalized understanding. 12:19:12 Family in waiting room. 12:19:13 Patient NPO since Midnight. 12:19:14 Is the patient allergic to Iodine/contrast media? No. 12:19:15 Was the patient premedicated? No 12:19:16 Is patient on blood thinner?Yes 12:19:19 ACC The patient was administered the following blood thiners within the last 24 hours: ACCPlavix 12:19:22 Patient diabetic? No. 12:19:25 Previous problem with sedation/anesthesia? No ? 12:19:28 Snore? Yes 12:19:29 Sleep apnea? No 12:19:30 Deviated septum? No 12:19:31 Opens mouth fully? Yes 12:19:32 Sticks out tongue? Yes 12:19:33 Airway obstruction? No ? 12:19:36 Dentures? No ? 12:20:22 Pre procedure: right dorsailis pedis pulse 2+ Normal; easily identifiable; not easily obliterated 12:20:24 Pre procedure: left dorsailis pedis pulse 2+ Normal; easily identifiable; not easily obliterated 12:20:27 Patient pain scale 0/10 ?. 12:20:34 IV patent on arrival in left forearm with 0.9% NaCl at [facility]. 12:20:37 Lab results completed and on chart. 12:20:43 Right Radial & Right Groin area was prepped with chlora-prep and draped in sterile fashion 12:20:43 Alarms reviewed by R. N. 12:20:44 Sharps counted by scrub and verified by R.N. 12:24:23 Zero performed for pressure channel P1 12:24:30 Zero performed for pressure channel P1 12:24:38 Zero performed for pressure channel P1 12:25:11 0.9% NaCl 100 ml/hr I.V. was administered by Zulma Sukh RN; used for procedure; 12:25:18 Oxygen 2 l/min etCO2 Nasal cannula was administered by Zulma Luz RN; used for procedure; 12:: Lidocaine 2% 20ml vial added to field was administered by Lopez Crawford MD; for local anesthetic; 12:: Heparin Flush Bag (1000units/500ml NS) 2 bags added to field was administered by Lopez Crawford MD; used for procedure; 12:25:40 Radial Cocktail (Verapomil 2mg/Nitro 400mcg/Heparin 1500units) 1 syringe added to field was administered by Lopez Crawford MD; used for procedure; 12:: Zero performed for pressure channel P1 12:: Physician arrived 12::28 --------ALL STOP TIME OUT------ 12::29 Final Timeout: patient, procedure, and site verified with staff and physician. All members of the team are in agreement. 12::31 Right Radial & Right Groin site verified by team. 12::34 Maximum allowable Isovue 300 dose 300ml. Physician notified. (300ml for normal creatinines. For patients with creatinine of 1.7 or higher multiply weight(kg) x 5 divided by creatinine.) 12:26:38 Fire Safety Assessment: A--An alcohol-based skin anteseptic being used preoperatively., C--Open oxygen or nitrous oxide is being used., D--An ESU, laser, or fiber-optic light is being used. 12:26:41 Physical assessment completed. ASA score P 2 - A patient with mild systemic disease as per Lopez Crawford MD. 12::44 Sedation plan: IV Moderate Sedation Medication:Versed, Fentanyl 12:28:06 Use device set Radial Dx or PCI 12:28:07 ACIST Syringe (72888) opened to sterile field. 12:28:07 Medline Cath Pack ([id number]) opened to sterile field. 12:28:08 Bag Decanter (2002) opened to sterile field. 12:28:08 DIAGNOSTIC WIRE .035 260cm J wire (177004) opened to sterile field. 12:28:08 ACIST Hand Control (81809) opened to sterile field. 12:28:09 ACIST Manifold (57058) opened to sterile field. 12:28:09 Tegaderm 4 x 4 (1626W) opened to sterile field. 12:28:10 MBrace Wrist Support ([id number]) opened to sterile field. 12:28:11 SHEATH 6FR Slender (98-6110) opened to sterile field. 12:28:15 Procedure started. 12::17 Versed 2 mg I.V. was administered by Zulma Luz RN; for sedation; 12::18 Local anesthetic to right radial artery with Lidocaine 2% by Lopez Crawford MD.INITIAL ACCESS ONLY 12:: Fentanyl 50 mcg I.V. was administered by Zulma Luz RN; for sedation; 12:: A 6 Fr Short sheath was inserted into the Right Radial artery 12::04 A DIAGNOSTIC Kirkwood 110cm 5 Fr catheter ([id number]) was advanced over the wire and used for Multi-vessel Angiography. 12:29:51 LV hemodynamics recorded. 12:29:53 LV gram done using MURRAY 12::55 Injector settings: Ml/sec: 5, Volume: 15, 12:30:01 EF : 60 % 12::17 LCA angiography performed. 12::22 Injector settings: Ml/sec: 3, Volume: 6, 12:31:02 RCA angiography performed. 12::06 Injector settings: Ml/sec: 3, Volume: 6, 12:31:12 Catheter removed. 12::20 Versed 2 mg I.V. was administered by Zulma Luz RN; for sedation; :29 Fentanyl 50 mcg I.V. was administered by Zulma Luz RN; for sedation; 12:31:46 TR BAND Large ([id number]) opened to sterile field. 12:31:59 Sheath removed intact; hemostasis achieved with Mechanical Compression to the Right Radial artery. 12:32:01 Procedure ended.(Physican Out) 12:32:10 Fluoroscopy time 00.70 minutes. 12:32:14 Fluoroscopy dose: 382 mGy 12:32:14 Flurop Dose total: 382 12:32:18 Contrast amount:Isovue 300 27ml. 12:32:20 Sharps counted by scrub and verified by R.N. 12:32:22 TR band inflated with 10cc of air. 12:32:24 Insertion/operative site no bleeding no hematoma. 12:32:44 Post right radial artery:stable 12:32:51 Post Procedure Pulses reassessed and unchanged 12:32:54 Post procedure rhythm: unchanged. 12:32:57 Estimated blood loss: 5 ml 12:32:59 Post procedure instruction explained to patient.Patient verbalizes understanding. 12:32:59 Patient needs reinforcement of post procedure teaching. 12:33:06 Procedure and supply charges have been captured, reviewed, submitted and are correct. 12:33:10 Procedure Complication : No complications 12:33:13 Vital chart was stopped 12:33:14 See physician's report for complete and final results. 12:33:52 Report given to [facility]. 12:33:54 Patient transfered to Med II with Stretcher. 12:33:58 Procedure ended. 12:33:58 Full Disclosure recording stopped 12:34:01 End room use (Document Last) Device Usage Item Name Manufacture Quantity Catalog Hospital Part Current Minimal Lot# / Number Charge Number Stock Stock Serial# Code ACIST Acist 1 97376 168943 393332 525696 20 Syringe Medical (54421) Systems Inc Medline Medline 1 [id number] 957260 60017 974458 5 Cath Pack ([id number]) Bag Microtek 1 2001S 347328 08549 433535 5 Decanter Medical Inc. (2001S) DIAGNOSTIC St Shantanu 1 307850 493471 204100 359818 30 WIRE .035 260cm J wire (551773) ACIST Hand Acist 1 91774 170569 121600 866271 5 Control Medical (73608) Systems Inc ACIST Acist 1 65419 624949 082740 995854 5 Manifold Medical (25911) Systems Inc Tegaderm 4 3M 1 1626W 760369 096247 603587 5 x 4 (1626W) MBrace Advanced 1 140-0250-00 904401 84743 217765 5 Wrist Vascular Support Dynamics ([id number]) SHEATH 6FR Terumo 1 [id number] 131508 880363 599157 5 Slender (80-1060) DIAGNOSTIC Terumo 1 40-4213 011117 661167 477613 5 Kirkwood 110cm 5 Fr catheter (310231) TR BAND Terumo 1 OOT60-SXD 837634 234891 556447 40 Large ([id number]) Signature Audit [place] Stage Time Signature Unsigned Intra-Procedure 01/20/2019 Criss Wray 12:36:45 PM RT(R) Signatures Monitor : Criss Wray RT Signature : Date : Time : [place] [id number] [place] [address]
--- NOTE | ~2019-01-19 | HP ---
PATIENT: MICHELLE BOJORQUEZ MEDICAL RECORD: [id number] ACCOUNT: [id number] LOCATION:. D2136 : 59 ADMISSION DATE: 01/19/19 PCP: DANILO VITAL DO HISTORY AND PHYSICAL EXAMINATION ADMITTING DIAGNOSES: 1. Chest pain compatible with unstable angina. 2. Carotid vascular disease. 3. Peripheral vascular disease. 4. Hypertension. 5. Hyperlipidemia. 6. Former smoker. HISTORY OF PRESENT ILLNESS: Mr. Bojorquez has multiple risk factors for coronary artery disease. He has noticed 3 weeks of shortness of breath, 3 days of increasing chest pain and chest pain is a very classic anginal symptomatology. A dull aching pressure sensation in his chest with radiation to his jaw and left arm, worsened dramatically over the past 24 hours. His EKG; however, has no acute ST-T abnormalities. PHYSICAL EXAMINATION: GENERAL APPEARANCE: Well-nourished, well-developed, appears stated age. Level of distress, comfortable. PSYCHIATRIC: Mental status, alert, normal affect. Orientation, oriented to time, place and person. EYES: Lids and conjunctiva, noninjected. No discharge, no pallor. ENT: Lips, teeth, gums, normal dentition. Oropharynx, no cyanosis, no pallor. NECK: Carotid arteries, bilateral normal upstroke, no bruits, no thrills. JUGULAR VEINS: No jugular venous pressure or distention. CERVICAL LYMPH NODES: Nontender, nonenlarged. THYROID: Not enlarged. Nontender. No nodules. LUNGS: Respiratory effort, unlabored. CHEST: Normal curvature. No thoracic deformity. No chest wall tenderness. Percussion, resonant. Auscultation, clear. No wheezes, no rales, no rhonchi. CARDIOVASCULAR: Precordial exam, nondisplaced. No heaves or pericardial thrills. Rate and rhythm, regular. Heart sounds, normal S1, normal S2. No S3, no gallop, no rub. Systolic murmur, not heard. Diastolic murmur, not heard. EXTREMITIES: No cyanosis, no edema. Peripheral pulses, full and equal in all extremities, except as noted. No bruits appreciated. ABDOMEN: Soft, nondistended. Normal aorta. No bruit. Nontender. No masses. Liver, nontender, no hepatomegaly. Spleen, nontender, no splenomegaly. MUSCULOSKELETAL: No joint tenderness. No joint swelling. No erythema. NEUROLOGICAL: Normal gait, normal strength, normal tone. SKIN: Warm and dry. OVERALL IMPRESSION: Chest pain compatible with unstable angina, worsening unstable fashion. We will proceed with coronary angiography. Further care depends upon findings of the angiography. TRANSINT:[id number] Voice Confirmation ID: [id number] DOCUMENT ID: [id number] HISTORY AND PHYSICAL [id number] MICHELLE BOJORQUEZ JEFFREY MD CC: [id number] DICTATION DATE: 01/20/19903 COATING MACHINE FEEDER: 01/20/19922 ADM IN [facility] [address] [id number]
--- NOTE | ~2019-01-19 | OP ---
PATIENT NAME: MICHELLE ECHOLS MEDICAL RECORD: [id number] :59 LOCATION:D.M2 D.2136 ADMISSION DATE:01/19/19 SURGEON: SETH NELSON MD DATE OF OPERATION: 01/20/2019 PROCEDURES: 1. Left heart catheterization. 2. Selective coronary angiography. 3. Left ventriculogram. INDICATION: Chest pain compatible with angina. PROCEDURE IN DETAIL: After informed consent was obtained and after a detailed description of the risks, benefits as well as alternative therapies, the patient elected to proceed with angiogram and heart catheterization. The right radial area was prepped and draped in normal sterile fashion. Right radial artery was cannulated via modified Seldinger technique with placement of 5-Irish sheath. All catheters exchanged through this sheath. FINDINGS: The left ventriculogram was performed in standard 30-degree MURRAY view, reveals good cardiac wall motion throughout all segments. Overall ejection fraction estimated 60%. SELECTIVE CORONARY ANGIOGRAPHY: Left main, left anterior descending, left circumflex, right coronary artery are all smooth-walled vessels with no angiographic evidence of coronary artery disease. OVERALL IMPRESSION: 1. No angiographic evidence of coronary artery disease. 2. Normal left heart pressures. 3. Normal left ventricular systolic function. Chest pain is noncardiac in etiology. No further cardiac workup needs to be ascertained. TRANSINT:[id number] Voice Confirmation ID: [id number] DOCUMENT ID: [id number] SETH NELSON MD CC: [id number] DICTATION DATE: 01/20/19 1236 WORKGROUP LEADER: 01/20/19 1400 ADM IN [id number] [place] [address]
--- NOTE | ~2019-01-19 | DS ---
PATIENT:MICHELLE BOJORQUEZ :59 MEDICAL RECORD: [id number] DISCHARGE SUMMARY ADMISSION DATE: 01/19/19 DISCHARGE DATE: 01/20/19 DATE OF DISCHARGE: 01/20/2019. DISCHARGE DIAGNOSES: 1. Chest pain. 2. Normal cardiac catheterization. 3. Hypertension. 4. Hyperlipidemia. HOSPITAL COURSE: Mr. Bojorquez presents with chest discomfort; however, cardiac catheterization reveals no significant coronary artery disease, was discharged home with no change in his medications, follow up with primary care physician. TRANSINT:[id number] Voice Confirmation ID: [id number] DOCUMENT ID: [id number] SETH NELSON MD CC: [id number] DICTATION DATE: 01/20/19 1235 BRAILLE PROOFREADER: 01/21/19 0920 DIS IN 01/20/[id number] [place] [address]
[~2019-01-19 21:18] MED LIST changes: -OMEGA 3 FISH OI1 CAP; +OMEGA FISH OIL
[2019-01-19 21:34] LABS: BASOPHILS 0.7 % (0-2); HEMATOCRIT 41.4 % (42.0-54.0); HEMOGLOBIN 14.6 g/dL (13.5-17.5); IMMATURE GRANULOCYTES 0.4 % (0-5); LYMPHOCYTES 38.3 % (15-50); MCH 33.5 pg (26.0-34.0); MCHC 35.3 g/dL (31.0-37.0); MEAN PLATELET VOLUME 10.5 fL (7.4-10.4); MONOCYTES 8.5 % (2-11); NEUTROPHILS 41.1 % (40-80); PLATELET COUNT 180 10x3/uL (130-400); RBC 4.36 10x6/uL (4.20-6.10); RDW 13.1 % (11.5-14.5); WBC 7.4 10x3/uL (4.8-10.8)
[2019-01-19 21:42] LABS: APTT 28.6 SECONDS (22.8-39.4); INR 0.98 (0.85-1.17); PROTIME 12.5 SECONDS (11.6-15.0)
[2019-01-19 21:50] LABS: ALBUMIN 3.9 g/dL (3.4-5.0); ALKALINE PHOSPHATASE 78 U/L (46-116); ALT (SGPT) 21 U/L (10-68); BILIRUBIN - TOTAL 0.22 mg/dL (0.2-1.3); CALC OSMOLALITY 277 mosm/kg (275-300); CALCIUM 9.2 mg/dL (8.5-10.1); CARBON DIOXIDE 26.6 mmol/L (21.0-32.0); CHLORIDE - SERUM 100 mmol/L (98-107); CREATININE - SERUM 1.2 mg/dL (0.6-1.3); GLUCOSE 149 mg/dL (74-106); POTASSIUM - SERUM 3.6 mmol/L (3.5-5.1); PROTEIN - SERUM 7.8 g/dL (6.4-8.2); SODIUM 138 mmol/L (136-145); UREA NITROGEN 11 mg/dL (7-18); eGFR NON AFRICAN AMERICAN 65 mL/min (90-120)
[2019-01-19 22:07] LABS: CREATINE KINASE 105 UL (21-232); MAGNESIUM - SERUM 1.6 mg/dL (1.8-2.4)
[2019-01-19 22:08] LABS: TROPONIN-I < 0.017 ng/mL (0.000-0.060)
[2019-01-19 22:36] VITALS: BP 133/68
--- NOTE | 2019-01-19 23:50 | NUR ---
PATIENT AND HIS ARRIVE FROM THE ED AND PLACED IN 2136. BED IS IN THE LOW POSITION WITH SIDERAILS X2 AND CALL LIGHT WITHIN REACH. PATIENT AND HIS EDUCATED TO CALL STAFF WHENEVER HE NEEDS TO GET OUT OF BED AND HOW TO USE A CALL LIGHT. PATIENT AND DEMONSTRATE UNDERSTANDING VIA TEACHBACK METHOD. TELEMETRY IN PLACE. THE PATIENT APPEARS COMFORTABLE WITH NO QUESTIONS OR CONCERNS AT THIS TIME.
[2019-01-19 23:55] VITALS: BP 142/60
[2019-01-20 00:04] VITALS: BP 131/70; Ht 180.3 cm; Wt 102.3 kg
--- NOTE | 2019-01-20 02:51 | NUR ---
I have reviewed this patient and I concur with the Shift Assessment completed by the Licensed Practical Nurse today this shift.
--- NOTE | 2019-01-20 02:53 | NUR ---
I have reviewed this patient and I concur with the Shift Assessment completed by the Licensed Practical Nurse today this shift.
[2019-01-20 03:55] VITALS: BP 134/64
--- NOTE | 2019-01-20 07:00 | NUR ---
RECEIVED REPORT. ASSUMED CARE OF PATIENT. CALL LIGHT WITHIN REACH. PATIENT LYING IN BED. ALERT/ORIENTED. NO DISTRESS. DISCUSSED NPO STATUS WITH PATIENT. PATIENT AT BEDSIDE.
--- NOTE | 2019-01-20 07:29 | NUR ---
IN ROOM ASSESSING PATIENT AND PATIENT NOTED TO BE SLIGHT DIAPHORETIC. QUESTIONED PATIENT ABOUT PAIN AND PAIN IN ARM 04/02. MORPHINE ADMINISTERED. TELEMETRY 67, IRREGULAR. CALL LIGHT WITHIN REACH. PATIENT AT BEDSIDE. RESP EVEN AND UNLABORED.
[2019-01-20 08:18] VITALS: BP 119/62
--- NOTE | 2019-01-20 09:36 | NUR ---
PREOP MEDICATIONS ADMINISTERED AT THIS TIME. PATIENT AWAITING TO BE TAKEN TO THE CERTIFIED ART THERAPIST. NO DISTRESS.
[2019-01-20 12:08] VITALS: BP 139/68
--- NOTE | 2019-01-20 12:10 | NUR ---
PATIENT LEFT UNIT VIA BED FOR FURNACE PROCESS SUPERVISOR AT THIS TIME. NO DISTRESS.
--- NOTE | 2019-01-20 13:10 | NUR ---
1245 RECEIVED PATIENT BACK FROM FRONT OFFICE DEVELOPER. CLEAN HEART CATH. TR BAND TO RIGHT RADIAL. CALL LIGHT WITHIN REACH. IV FLUIDS INFUSING TO LEFT FOREARM. PATIENT ALERT/ORIENTED AND CONVERSING WITH FAMILY AT BEDSIDE. NO DISTRESS. BP 121/53
--- NOTE | 2019-01-20 13:45 | NUR ---
5 CC AIR RELEASED FROM TR BAND.
--- NOTE | 2019-01-20 14:50 | NUR ---
TR BAND REMOVED. 2X2 GAUZE APPLIED AND SECURED WITH CLEAR TEGADERM. NO BLEEDING FROM SITE WHEN REMOVING AIR. PATIENT FAMILY AT BEDSIDE. PERIPHERAL PULSES PATENT. BP 138/66. NO DISTRESS. DENIES PAIN. WAITING ON ULTRASOUND FOR CAROTID DOPPLER TO BE COMPLETED AND PATIENT CAN BE DISCHARGED.
--- NOTE | 2019-01-20 16:30 | NUR ---
1615 20 GAUGE IV REMOVED FROM LEFT FOREARM. CATHETER TIP INTACT. NO BLEEDING FROM SITE. 2X2 GAUZE APPLIED AND SECURED WITH BANDAID. 1620 DISCHARGE INSTRUCTIONS PROVIDED TO PATIENT AND HIS . PATIENT VERBALIZED UNDERSTANDING OF ALL INSTRUCTIONS PROVIDED FOR RIGHT RADIAL WRIST. 1630 PATIENT LEFT UNIT VIA WHEELCHAIR WITH ALL PERSONAL BELONGINGS. PATIENT IN NO DISTRESS UPON LEAVING UNIT. PATIENT THANKED THIS NURSE FOR ALL CARES RENDERED.
--- NOTE | 2019-01-22 09:49 | MORECARE ---
CASE MANAGEMENT DISCHARGE SUMMARY PATIENT: MICHELLE ECHOLS UNIT: [id number] ADM DATE: 01/19/19 AGE: 63 : 59 SEX: M ROOM/BED: D.2136 AUTHOR: SAKSHI ROSE PHYSICIAN: REFERRING PHYSICIAN: SETH NELSON MD DATE OF SERVICE: 01/22/19 Discharge Plan Patient Name: MICHELLE ECHOLS Facility: [facility]:[place] : 1955 Planned Disposition: Home Anticipated Discharge Date: 01/20/19 Discharge Date: 01/20/2019 Expected LOS: 1 Initial Reviewer: [email or web address] Initial Review Date: 01/22/2019 Generated: 01/22/19 10:49 am Patient Name: MICHELLE ECHOLS Page [id number] at 0949 All edits/amendments must be made on the electronic document DICTATION DATE: [birth year]/22/1947 EMBEDDED SOFTWARE MANAGER: YADI 01/22/1947 RPT#: [id number] DC DATE:01/20/19 STATUS: DIS IN [facility] [address] [place] [address] END OF REPORT
== END 2019-01-20 16:30 | disposition home or self-care (01) ==
LOC: D.ER 21:18 → D.M2 22:55 → OBSVTIME 22:55 → D.M2 01-20 16:30
PROVIDERS: Emergency Medicine; ADMIT Internal Medicine Interventional Cardiology; ATTEND Internal Medicine Interventional Cardiology
DX: R07.89 Other chest pain (principal); I10 Essential (primary) hypertension; E78.5 Hyperlipidemia, unspecified; Z87.891 Personal history of nicotine dependence; I73.9 Peripheral vascular disease, unspecified

== ENCOUNTER → 2021-02-05 13:47 | Outpatient (CLI) | payer BC ==
[2019-01-20 00:04] VITALS: BMI 31.4
== END | disposition home or self-care (01) ==
LOC: D.US 13:47
PROVIDERS: ATTEND Internal Medicine Interventional Cardiology
DX: I65.29 Occlusion and stenosis of unspecified carotid artery (principal)